=== PATIENT | male | born 1965 | race Caucasian/White ===

== ENCOUNTER 2018-06-14 17:17 | Emergency (ER) | payer MEDICAID ==
[~2018-06-14] VITALS: Ht 172.7 cm; Wt 86.2 kg
[2018-06-14 17:19] VITALS: BP 153/77
[2018-06-14 17:37] VITALS: BP 153/77
--- NOTE | 2018-06-14 17:38 | NUR ---
Patient discharged with v/s stable. Written and verbal after care instructions given and explained. Patient verbalized understanding. Ambulatory with steady gait. All questions addressed prior to discharge. Advised to follow up with PMD.
== END 2018-06-14 17:38 ==
LOC: MED 17:17
DX: Z02.89 Encounter for other administrative examinations (principal)
CPT/HCPCS: 99283